=== PATIENT | male | born 1990 | race Two or more races ===

== ENCOUNTER 2020-08-17 15:05 | Emergency (ER) | payer SELFPAY ==
[~2020-08-17] VITALS: Ht 165.1 cm; Wt 68.2 kg
[2020-08-17 15:08] VITALS: Ht 165.1 cm; Wt 68.2 kg
[2020-08-17] MEDS ORDERED: CLEOCIN HCL300 MG PO (16:34)
[2020-08-17] MEDS ORDERED: DICLOFENAC SODI50 MG PO (16:34)
[2020-08-17] MEDS ORDERED: CEPHALEXIN500 M1 PO (16:34)
[2020-08-17 19:17] VITALS: BP 113/74
== END 2020-08-17 19:15 | disposition home or self-care (01) ==
LOC: D.ER 15:05
DX: M79.641 Pain in right hand (principal); S67.21XA Crushing injury of right hand, initial encounter; X58.XXXA Exposure to other specified factors, initial encounter; T14.8XXA Other injury of unspecified body region, initial encounter